=== PATIENT | female | born 1965 | race Caucasian/White ===

== ENCOUNTER 2022-02-15 11:27 | Inpatient (IN) | payer OTHER ==
[~2022-02-15] VITALS: Ht 167.6 cm; Wt 109.5 kg
[2022-02-15] MEDS ORDERED: FUMARATE (11:43)
[2022-02-15] MEDS ORDERED: OLAN5TAB3 PO (11:43)
[2022-02-15] MEDS ORDERED: ACETAMINOPHEN 650 MG SUPP.RECT RC ONE ×3 (11:45→12:01)
[2022-02-15] MEDS ORDERED: IV NS 1000 ML 1,000 ML IV ONE (11:45)
[2022-02-15 12:12] LABS: *BILIRUBIN,URIN 1+ (NEGATIVE); *BLOOD, URINE 2+ (NEGATIVE); *CLARITY,URINE CLOUDY (CLEAR); *KETONES,URINE NEGATIVE (NEGATIVE); LEUKOCYTE ESTERASE ,URINE NEGATIVE (NEGATIVE); NITRITE, URINE POSITIVE (NEGATIVE); PH,URINE 5.5 (5.0-8.0); UGLUCOSE NEGATIVE (NEGATIVE)
[2022-02-15 12:14] LABS: HEMATOCRIT 46.2 % (31.2-41.9); MEAN CORPUSCULAR HEMOGLOBIN 31.1 uug (24.7-32.8); MEAN CORPUSCULAR VOLUME 91.6 fL (75.5-95.3); PLATELET COUNT (AUTO) 281 K/uL (179-408)
[2022-02-15 12:16] LABS: *COLOR,URINE DARK YELLOW (YELLOW)
--- NOTE | 2022-02-15 12:19 | NUR ---
PT IS IN ROOM #1B. DR BARONE EVALUATED TH PT.
[2022-02-15 12:25] LABS: CARBON DIOXIDE 27 mmol/L (21-32); CHLORIDE 104 mmol/L (98-107); GLUCOSE 115 mg/dL (74-106); POTASSIUM 3.6 mmol/L (3.5-5.1); UREA NITROGEN, BLOOD 22 mg/dL (7-18)
[2022-02-15 12:28] LABS: ABG BASE EXCESS -0.6 mmol/L; ABG HCO3 23.9 mmol/L; ABG PCO2 39.2 mmHg (35.0-45.0); ABG PH 7.403 (7.350-7.450); ABG PO2 70.6 mmHg (75.0-100.0); ABG SITE RIGHT RADIAL; COHb 0.4 % (0.5-1.5); MetHb 0.1 % (0.0-1.5); O2Hb 93.7 % (94.0-97.0); VENT MODE Nasal Cannula
[2022-02-15 12:42] LABS: ALANINE AMINOTRANSFERASE 44 U/L (14-59); ALKALINE PHOSPHATASE 121 U/L (50-136); ASPARTATE AMINOTRANSFERASE 43 U/L (15-37); BILIRUBIN,TOTAL 0.4 mg/dL (0.2-1.0); FERRITIN 238 ng/mL (8-252); LACTATE DEHYDROGENASE 192 U/L (81-234); TOTAL PROTEIN, SERUM 8.1 g/dL (6.4-8.2)
[2022-02-15] MEDS ORDERED: OLAN2.5T3 PO (12:51)
[2022-02-15] MEDS ORDERED: QUET25TA PO (12:51)
[2022-02-15 12:53] LABS: BACTERIA,URINE MANY /HPF (NONE SEEN); SQUAMOUS EPITHELIAL CELL,UR MODERATE /HPF (NONE SEEN)
[2022-02-15 12:57] LABS: CREATINE KINASE, TOTAL 470 U/L (26-192)
[2022-02-15] MEDS ORDERED: CEFTRIAXONE 1 G in IV DEXTROSE 5% 50 ML IV ONE (13:00)
[2022-02-15] MEDS ORDERED: CEFTRIAXONE /D5W 50ML IVPB **ER PYXIS IV ONE (13:14)
--- NOTE | 2022-02-15 14:27 | NUR ---
Jenise Rodriguez STAFF COMMAND AND CONTROL OFFICER at bedside.
[2022-02-15] MEDS ORDERED: CEFTRIAXONE 1 G in IV DEXTROSE 5% 50 ML IV SCH (15:00)
[2022-02-15] MEDS ORDERED: AZITHROMYCIN IV 500 MG in IV DEXTROSE 5% 250 ML IV SCH (15:00)
[2022-02-15] MEDS ORDERED: ALBUTEROL SULFATE 8 GM HFA.AER.AD IH PRN (15:00)
[2022-02-15] MEDS ORDERED: ONDANSETRON 4 MG/2 ML VIAL IV PRN (15:00)
[2022-02-15] MEDS ORDERED: ACETAMINOPHEN 650 MG/20.3 ML LIQUID UDC GT PRN (15:00)
[2022-02-15] MEDS ORDERED: ACETAMINOPHEN 650 MG SUPP.RECT RC PRN (15:00)
[2022-02-15] MEDS ORDERED: PIPERACILLIN/TAZOBACTAM/D5W 50 ML IV ONE (15:14)
[2022-02-15] MEDS ORDERED: IV NORMAL SALINE 250 ML IV ONE (15:15)
[2022-02-15] MEDS ORDERED: SWABABLE VALVE TRANSFER SET EA MC ONE (15:15)
[2022-02-15] MEDS ORDERED: IOHEXOL 350 100 ML INFUS..BTL ONE (15:15)
[2022-02-15] MEDS: QUETIAPINE FUMARATE 25 MG TABLET PO SCH (17:00)
[2022-02-15] MEDS ORDERED: OLANZAPINE 2.5 MG TABLET PO SCH (17:00)
--- NOTE | 2022-02-15 17:32 | NUR ---
PT IS RESTING IN BED CONFORTABLY. NO S/S OF ACUTE DISTRESS AT THIS TIME. CONTINUE TO MONITOR THE PT.
--- NOTE | 2022-02-15 19:52 | NUR ---
RECEIVED REPORT FROM TIFFANY FERNANDEZ. PATIENT REMAINS ON TELEMETRY MONITORING. NSR, NO SIGNS OF RESPIRATORY DISTRESS. VITAL SIGNS STABLE.
[2022-02-15] MEDS ORDERED: ENOXAPARIN SODIUM 100 MG/ML DISP.SYRIN SQ SCH (20:00)
[2022-02-15] MEDS ORDERED: ENOXAPARIN SODIUM 100 MG/ML DISP.SYRIN SQ ONE (21:07)
--- NOTE | 2022-02-15 21:12 | NUR ---
PATIENT CARE REPORTED TO TIFFANY ANDRE ADMITTING RN TO FLOOR. VITAL SIGNS STABLE.
--- NOTE | 2022-02-15 21:17 | NUR ---
TIFFANY QUEVEDOMANAGER HEART AND MIKE JIMENEZ TRANSPORTED PATIENT IN STABLE CONDITION.
--- NOTE | 2022-02-15 21:25 | NUR ---
Received pt from er via [facility]. Under the care of Jenise Rodriguez NP. Dx: Covid 19 PNA. Pt on 3l nasal cannula at 94%. Admission process and care plan initiated. Belonging list done. Iv intact. detention assessment done. Pt observed to have redness on groin area. PT has richards catheter and dwelling yellow colored urine. Safety and comfort provided. Will continue to monitor
[2022-02-15 21:51] VITALS: BP 117/45
--- NOTE | 2022-02-15 23:00 | NUR ---
Quynh daughter of the pt called regarding update of her mother. Gave information and nurse ask regarding advance directive of the pt.Pt ifs full code.Family is asking if they can visit the pt. Told family member that its a hospital protocol that no vistor is allowed for covid pt for safety purposes. Family member talked to supervisor scrap preparation. Will continue to monitor.
[2022-02-16 00:03] VITALS: BP 107/45
[2022-02-16] MEDS: IV NS 1000 ML 1,000 ML IV PRN ×2 (00:19→10:47)
--- NOTE | 2022-02-16 01:50 | NUR ---
Called Kaitlyn ( person to notify) regarding pt update. Gave information that within the scope of the nurse job description. Will let the doctor know that family wants an update regarding the pt.
[2022-02-16 04:21] VITALS: BP 104/53
[2022-02-16] MEDS ORDERED: ACETAMINOPHEN 325 MG TABLET PO PRN (05:45)
--- NOTE | 2022-02-16 06:49 | NUR ---
Pt slept intermittently. Pt in no acute distress. Iv intact. Pt on 3l nasal cannula. Pt had richards catheter and draining yellow colored urine. Prescribed medication given and pt tolerated it well. Pt nonverbal. Safety and comfort provided. All needs are met. Will endorse to incoming nurse for continuity of care.
--- NOTE | 2022-02-16 06:51 | NUR ---
Pt on sinus rhythm
[2022-02-16 07:02] LABS: HEMATOCRIT 41.3 % (31.2-41.9); MEAN CORPUSCULAR HEMOGLOBIN 31.5 uug (24.7-32.8); MEAN CORPUSCULAR VOLUME 91.9 fL (75.5-95.3); PLATELET COUNT (AUTO) 232 K/uL (179-408)
[2022-02-16 07:29] LABS: BILIRUBIN,TOTAL 0.3 mg/dL (0.2-1.0); CREATININE 0.7 mg/dL (0.6-1.3); POTASSIUM 3.6 mmol/L (3.5-5.1)
--- NOTE | 2022-02-16 08:30 | NUR ---
resting. on 3 lpm via nc satting 94%. breathing non labored. sr on telemonitor. awakens a little but non verbal unable to answer questions. iv intact with hydration ongoing. fc intact yellow urine in bag. no ss of pain or sob. needs attended. cont to monitor Addendum: 02/16/22 at 0833 by ROSANGELA DOMINGUEZ RN cont covid precautions. safety measures in place.
[2022-02-16] MEDS: OLANZAPINE 5 MG TABLET PO SCH ×2 (09:00→16:52)
[2022-02-16] MEDS: QUETIAPINE FUMARATE 25 MG TABLET PO SCH (09:00)
[2022-02-16] MEDS: DEXAMETHASONE SOD PHOSPHATE 4 MG INJ IV SCH (09:19)
[2022-02-16] MEDS: PANTOPRAZOLE SODIUM 40 MG VIAL IV SCH (09:19)
--- NOTE | 2022-02-16 09:40 | NUR ---
pt too sleepy, high risk for aspiration, po meds held
[2022-02-16 11:35] VITALS: BP 120/69
[2022-02-16] MEDS: CEFTRIAXONE 2 G in IV DEXTROSE 5% 100 ML IV SCH (12:51)
[2022-02-16] MEDS ORDERED: AZITHROMYCIN IV 500 MG in IV DEXTROSE 5% 250 ML IV SCH (15:00)
[2022-02-16] MEDS: DOXYCYCLINE HYCLATE IV 100 MG in IV DEXTROSE 5% 100 ML IV SCH (15:11)
[2022-02-16 16:00] VITALS: BP 118/69
--- NOTE | 2022-02-16 16:41 | NUR ---
relayed Speech therapy notes to MULTIPLE DRILL OPERATOR [facility] with order to change pt diet to npo for now
--- NOTE | 2022-02-16 17:33 | NUR ---
resting. still unable to verbalize, does not follow commands. sr on telemonitor. no sob or pain
--- NOTE | 2022-02-16 19:40 | NUR ---
Received patient lying in bed. Awake, able to make eye contact, smiling but non-verbal. In no apparent distress. No signs or symptoms of pain or SOB. On O2 at 3LPM via NC in place. O2 sat at 93%. IV site on right wrist intact and patent. Bowden catheter intact and draining via gravity. COVID precaution observed. Safety measure initiated and call light within reached.
[2022-02-16 20:00] VITALS: BP 102/45
[2022-02-16] MEDS: ENOXAPARIN SODIUM 40 MG/0.4 ML DISP.SYRIN SQ SCH (20:31)
[2022-02-17] VITALS: BP 111/59
[2022-02-17] MEDS: IV NS 1000 ML 1,000 ML IV PRN ×2 (00:09→12:40)
[2022-02-17] MEDS: DOXYCYCLINE HYCLATE IV 100 MG in IV DEXTROSE 5% 100 ML IV SCH ×2 (02:23→14:47)
[2022-02-17 04:00] VITALS: BP 123/70
--- NOTE | 2022-02-17 05:59 | NUR ---
Patient slept well during the night. In no apparent distress. Remains on O2 at 3LPM via NC. O2 sat at 96%. No adverse reaction noted from IV antibiotic. NPO status. Needs assessed and attended to. Safety measure maintained and call light within reach.
[2022-02-17 06:33] LABS: HEMATOCRIT 38.5 % (31.2-41.9); MEAN CORPUSCULAR HEMOGLOBIN 31.2 uug (24.7-32.8); MEAN CORPUSCULAR VOLUME 91.8 fL (75.5-95.3); PLATELET COUNT (AUTO) 216 K/uL (179-408)
[2022-02-17 06:38] LABS: CREATININE 0.7 mg/dL (0.6-1.3); POTASSIUM 3.3 mmol/L (3.5-5.1)
[2022-02-17] MEDS: DEXAMETHASONE SOD PHOSPHATE 4 MG INJ IV SCH (07:58)
[2022-02-17] MEDS: OLANZAPINE 5 MG TABLET PO SCH ×2 (07:59→17:00)
[2022-02-17] MEDS: PANTOPRAZOLE SODIUM 40 MG VIAL IV SCH (07:59)
--- NOTE | 2022-02-17 08:00 | NUR ---
RESTING IN BED WITH EYES CLOSED, OPENS EYES TO VERBAL AND TACTILE STIMULI. ON 3L O2 VIA NC SATURATING 95-96%. SWALLOW TEST WITH 5CC WATER NO SIGNS OF COUGHING OR CHOKING, FOLLOWS COMMAND BY OPENING MOUTH. AFEBRILE SR ON MONITOR
[2022-02-17] MEDS: POTASSIUM CHLORIDE 50 ML IV SCH ×2 (11:01→11:30)
[2022-02-17 11:30] VITALS: BP 153/89
--- NOTE | 2022-02-17 12:00 | NUR ---
NO CHANGE FROM MORNING ASSESSMENT
[2022-02-17] MEDS: CEFTRIAXONE 2 G in IV DEXTROSE 5% 100 ML IV SCH (12:42)
--- NOTE | 2022-02-17 13:00 | NUR ---
CONTINUE IV ANTIBIOTIC ORDERED NO REACTION NOTED, KEPT NPO AND CONTINUE WITH IVF AT 90 MLS/HR
[2022-02-17 16:00] VITALS: BP 124/75
--- NOTE | 2022-02-17 17:49 | NUR ---
1700 MEDS NOT GIVEN PT NPO
[2022-02-17 20:00] VITALS: BP 125/77
--- NOTE | 2022-02-17 20:40 | NUR ---
Patient asleep but arousable, no sob no chest pain, no s/s of pain, remains on droplet precaution for covid 19, tele monitor sinus rhythm, sinus tachy, sat wnl, v/s table, cont to monitor.
[2022-02-17] MEDS: ENOXAPARIN SODIUM 40 MG/0.4 ML DISP.SYRIN SQ SCH (21:23)
[2022-02-18] VITALS: BP 128/82
[2022-02-18] MEDS: DOXYCYCLINE HYCLATE IV 100 MG in IV DEXTROSE 5% 100 ML IV SCH ×2 (03:12→16:48)
[2022-02-18] MEDS: IV NS 1000 ML 1,000 ML IV PRN ×2 (03:14→22:10)
[2022-02-18 04:00] VITALS: BP 129/76
--- NOTE | 2022-02-18 05:03 | NUR ---
Patient asleep, but arousable, no complain of pain, remain on droplet precaution, sat wnl, afebrile kept comfortable, cont to monitor.
[2022-02-18 06:59] LABS: HEMATOCRIT 38.6 % (31.2-41.9); MEAN CORPUSCULAR HEMOGLOBIN 31.1 uug (24.7-32.8); MEAN CORPUSCULAR VOLUME 91.6 fL (75.5-95.3); PLATELET COUNT (AUTO) 222 K/uL (179-408)
[2022-02-18 07:22] LABS: CREATININE 0.8 mg/dL (0.6-1.3); MAGNESIUM 1.7 mg/dL (1.8-2.4); POTASSIUM 3.4 mmol/L (3.5-5.1)
[2022-02-18] MEDS: OLANZAPINE 5 MG TABLET PO SCH ×3 (09:00→16:49)
[2022-02-18] MEDS: DEXAMETHASONE SOD PHOSPHATE 4 MG INJ IV SCH (09:43)
[2022-02-18] MEDS: PANTOPRAZOLE SODIUM 40 MG VIAL IV SCH (09:43)
[2022-02-18] MEDS: POTASSIUM CHLORIDE 50 ML IV SCH ×2 (09:44→11:11)
--- NOTE | 2022-02-18 10:20 | NUR ---
Pt is sleeping, opens eyes with touch but does not fully stay alert. Unable to do swallow eval due to lethargy. Pt to remain on NPO status until further notice
[2022-02-18] MEDS: MAGNESIUM SULFATE/D5W 100 ML IV SCH ×2 (12:05→13:10)
[2022-02-18 12:24] VITALS: BP 113/52
[2022-02-18] MEDS: CEFTRIAXONE 2 G in IV DEXTROSE 5% 100 ML IV SCH (13:10)
[2022-02-18 15:22] VITALS: BP 129/69
--- NOTE | 2022-02-18 16:00 | NUR ---
Pt is a/po x 4. Pt being discharged to [facility] bed 47B. Nursing extruding department supervisor, administration, 2 social workers and RN in room counting patients money and showing patient all of her personal belongings one by one. After all that was accounted for, pt signed personal belongings list. All discharge information given to patient, provided with paperwork and education in folder transferring with her. ID band IV access removed. no signs of acute distress. pt is agreeable with discharge and aware of next plan. Report was given to Tosin ALLEN yesterday by nurse Bacon. Called and notified facility today of patient arrival, bed is still available. Addendum: 02/18/22 at 1639 by JIMMIE OAKES RN note for wrong patient. Note belongs to pt in [address] [place] [address].
--- NOTE | 2022-02-18 18:14 | NUR ---
Pt has been taken down for CT of the head without contrast. Pt still lethargic, only opens eyes to stimulus and touch but does not make coherent statements. Will continue to monitor and endorse.
--- NOTE | 2022-02-18 18:32 | NUR ---
Pt is back in room from CT. Condition remains the same. No signs of acute distress, will endorse to shift boss.
[2022-02-18 20:00] VITALS: BP 120/57
--- NOTE | 2022-02-18 20:00 | NUR ---
Received patient asleep on bed, easily arousable for care and mumbles. On O2 at 3lpm via nc saturating at 97%. NSR on tele. IV access RFA and midline on CATRINA patent and intact. FC draining well with yellowish urine. Still on droplet precaution. All needs attended. Call light placed within reach. Will continue to monitor.
[2022-02-18] MEDS: ENOXAPARIN SODIUM 40 MG/0.4 ML DISP.SYRIN SQ SCH (20:23)
[2022-02-19 00:06] VITALS: BP 127/62
[2022-02-19] MEDS: DOXYCYCLINE HYCLATE IV 100 MG in IV DEXTROSE 5% 100 ML IV SCH ×2 (02:41→14:16)
[2022-02-19 04:41] VITALS: BP 119/57
--- NOTE | 2022-02-19 06:29 | NUR ---
Pt asleep throughout the night. On O2 at 3lpm via NC saturating at 97%. NSR on tele. No significant changes noted. All needs attended. Safety precautions observed. Will endorse to next shift for continuity of care.
[2022-02-19 07:35] LABS: HEMATOCRIT 40.1 % (31.2-41.9); MEAN CORPUSCULAR HEMOGLOBIN 31.4 uug (24.7-32.8); MEAN CORPUSCULAR VOLUME 90.9 fL (75.5-95.3); PLATELET COUNT (AUTO) 211 K/uL (179-408)
[2022-02-19 07:48] LABS: CREATININE 0.8 mg/dL (0.6-1.3); MAGNESIUM 1.9 mg/dL (1.8-2.4); POTASSIUM 3.5 mmol/L (3.5-5.1)
--- NOTE | 2022-02-19 08:00 | NUR ---
patient easily arousable for care, non verbal. On O2 at 2lpm via NC, no SOB, occasional moist cough noted. NSR on telemetry. IV access RFA and midline on CATRINA patent and intact. FC draining well with yellow clear urine. Continues on COVID isolation, droplet precautions followed. All needs attended. Call light placed within reach.
[2022-02-19] MEDS: PANTOPRAZOLE SODIUM 40 MG VIAL IV SCH (08:08)
[2022-02-19] MEDS: DEXAMETHASONE SOD PHOSPHATE 4 MG INJ IV SCH (08:08)
--- NOTE | 2022-02-19 10:30 | NUR ---
Patient is easily woken. patient is non verbal does turn head to look at this RN when spoken to. Swallow eval completed by this RN, patient has no drooling at this time. Able to swallow 5ml water without difficulty. Patient then able to tolerate 1/2 cup of water without difficulty, also able to take about 8-10 table spoons of apple sauce. Flavio Aden NP aware with new orders to start puree diet and feed patient at night.
[2022-02-19 11:54] VITALS: BP 110/66
[2022-02-19] MEDS: CEFTRIAXONE 2 G in IV DEXTROSE 5% 100 ML IV SCH (12:13)
--- NOTE | 2022-02-19 12:30 | NUR ---
Able to tolerate 30-40% of puree lunch and 50% of Ensure, patient is total assist with feeding. patient HOB up for aspiration precautions. Still remains non verbal, able to wake easily by touch.
[2022-02-19 15:52] VITALS: BP 118/61
--- NOTE | 2022-02-19 18:26 | NUR ---
Able to tolerate 10-20% of puree lunch and 100% of Ensure, patient is total assist with feeding. Patient HOB up for aspiration precautions. Still remains non verbal, able to wake easily by touch.
--- NOTE | 2022-02-19 19:30 | NUR ---
Received patient in bed with eyes closed, able to wake up for care, non verbal. HOB elevated, no noted acute distress. Occasional cough noted. NSR on telemetry. RFA and midline on CATRINA intact and patent. Continues on COVID isolation, droplet precautions observed. Bowden cath intact and patent draining to yellow urine. Needs assessed and attended to. Call light within reach.
[2022-02-19 20:10] VITALS: BP 103/60
[2022-02-19] MEDS: ENOXAPARIN SODIUM 40 MG/0.4 ML DISP.SYRIN SQ SCH (20:44)
[2022-02-19] MEDS: IV NS 1000 ML 1,000 ML IV PRN (23:30)
[2022-02-20 00:43] VITALS: BP 122/75
[2022-02-20] MEDS: DOXYCYCLINE HYCLATE IV 100 MG in IV DEXTROSE 5% 100 ML IV SCH ×2 (03:09→14:47)
[2022-02-20 04:48] VITALS: BP 134/69
--- NOTE | 2022-02-20 06:46 | NUR ---
Patient slept well, able to wake up for care. Still non verbal. No noted facial grimace. No SOB, occasional cough noted. No noted adverse reaction from IV antibiotics.
[2022-02-20 06:56] LABS: HEMATOCRIT 42.2 % (31.2-41.9); MEAN CORPUSCULAR HEMOGLOBIN 30.9 uug (24.7-32.8); PLATELET COUNT (AUTO) 217 K/uL (179-408)
[2022-02-20 07:42] LABS: CREATININE 0.8 mg/dL (0.6-1.3); PHOSPHOROUS 2.5 mg/dL (2.5-4.9); POTASSIUM 3.5 mmol/L (3.5-5.1)
[2022-02-20] MEDS: PANTOPRAZOLE SODIUM 40 MG VIAL IV SCH (09:33)
[2022-02-20] MEDS: DEXAMETHASONE SOD PHOSPHATE 4 MG INJ IV SCH (09:33)
[2022-02-20 11:57] VITALS: BP 114/49
[2022-02-20] MEDS: CEFTRIAXONE 2 G in IV DEXTROSE 5% 100 ML IV SCH (12:06)
[2022-02-20] MEDS: IV NS 1000 ML 1,000 ML IV PRN (14:46)
[2022-02-20 16:12] VITALS: BP 128/59
--- NOTE | 2022-02-20 18:24 | NUR ---
Patient received care well throughout shift with no signs of distress or pain. Patient remains nonverbal but is able to track. IV site patent and intact. Bed left in lowest position. Comfort measures provided. Will endorse information to PM nurse.
[2022-02-20 20:00] VITALS: BP 149/76
[2022-02-20] MEDS: ENOXAPARIN SODIUM 40 MG/0.4 ML DISP.SYRIN SQ SCH (20:52)
[2022-02-21] VITALS: BP 135/91
[2022-02-21] MEDS: DOXYCYCLINE HYCLATE IV 100 MG in IV DEXTROSE 5% 100 ML IV SCH ×2 (02:48→14:24)
[2022-02-21 04:00] VITALS: BP 133/71
[2022-02-21] MEDS: PANTOPRAZOLE ORAL SUSPENSION 40 MG SUSPDR.PKT PO SCH (06:06)
[2022-02-21 07:17] LABS: HEMATOCRIT 40.8 % (31.2-41.9); MEAN CORPUSCULAR HEMOGLOBIN 30.6 uug (24.7-32.8); MEAN CORPUSCULAR VOLUME 90.2 fL (75.5-95.3); PLATELET COUNT (AUTO) 219 K/uL (179-408)
[2022-02-21 07:28] LABS: CREATININE 0.7 mg/dL (0.6-1.3); MAGNESIUM 1.8 mg/dL (1.8-2.4); PHOSPHOROUS 2.3 mg/dL (2.5-4.9); POTASSIUM 3.1 mmol/L (3.5-5.1)
--- NOTE | 2022-02-21 08:00 | NUR ---
awake alert but confused, head of bed elevated, on 3l/nc sat at 94%, no distress noted, droplet isolation observed for covid, needs attended and safety measures maintained, call light within reach
[2022-02-21 08:34] VITALS: BP 119/52
[2022-02-21] MEDS: DEXAMETHASONE SOD PHOSPHATE 4 MG INJ IV SCH (08:44)
--- NOTE | 2022-02-21 09:00 | NUR ---
fed with breakfast ate 30%, aspiration precautions observed, seen by Peyton Aden NP and was seen by Dr Staton earlier, will continue to monitor
[2022-02-21] MEDS ORDERED: POTASSIUM CHLORIDE 20 MEQ TAB.PRT.SR PO ONE (10:00)
[2022-02-21] MEDS ORDERED: DEXA4VIA17 IV (11:31)
[2022-02-21] MEDS ORDERED: ALBU8HFA4 IH (11:31)
[2022-02-21] MEDS: CEFTRIAXONE 2 G in IV DEXTROSE 5% 100 ML IV SCH (12:26)
[2022-02-21 14:06] VITALS: BP 113/45
[2022-02-21 15:29] VITALS: BP 128/75
[2022-02-21] MEDS ORDERED: NEUTRA PHOS PACKET PO ONE (16:00)
--- NOTE | 2022-02-21 19:40 | NUR ---
Patient in bed awake, confused and mumbling. HOB elevated to patient's comfort. In no acute distress, no SOB, no cough/congestion. Bowden cath intact draining to yellow color urine. Right arm IV access intact and patent. Bed in locked and low position. Call light within easy reach.
[2022-02-21 20:33] VITALS: BP 144/81
[2022-02-21] MEDS: ENOXAPARIN SODIUM 40 MG/0.4 ML DISP.SYRIN SQ SCH (20:49)
[2022-02-22 00:25] VITALS: BP 114/72
[2022-02-22] MEDS: DOXYCYCLINE HYCLATE IV 100 MG in IV DEXTROSE 5% 100 ML IV SCH ×2 (02:54→14:48)
[2022-02-22 04:36] VITALS: BP 139/79
--- NOTE | 2022-02-22 06:09 | NUR ---
Patient slept well, easy to arouse. HOB kept elevated, no acute distress noted, no cough/congestion. No adverse reaction from IV antibiotics. Isolations precautions observed.
[2022-02-22] MEDS: PANTOPRAZOLE ORAL SUSPENSION 40 MG SUSPDR.PKT PO SCH (06:23)
[2022-02-22 08:22] LABS: HEMATOCRIT 41.3 % (31.2-41.9); MEAN CORPUSCULAR HEMOGLOBIN 30.9 uug (24.7-32.8); MEAN CORPUSCULAR VOLUME 90.7 fL (75.5-95.3); PLATELET COUNT (AUTO) 287 K/uL (179-408)
[2022-02-22 08:44] LABS: BILIRUBIN,TOTAL 0.3 mg/dL (0.2-1.0); CREATININE 0.7 mg/dL (0.6-1.3); MAGNESIUM 1.8 mg/dL (1.8-2.4); POTASSIUM 3.4 mmol/L (3.5-5.1); TOTAL PROTEIN, SERUM 7.2 g/dL (6.4-8.2)
[2022-02-22] MEDS: DEXAMETHASONE SOD PHOSPHATE 4 MG INJ IV SCH (09:15)
[2022-02-22] MEDS ORDERED: POTASSIUM CHLORIDE 20 MEQ TAB.PRT.SR PO ONE (10:00)
--- NOTE | 2022-02-22 12:43 | NUR ---
D/C PLANNING TO [facility] AWAITING FOR ORDERS.
[2022-02-22] MEDS: CEFTRIAXONE 2 G in IV DEXTROSE 5% 100 ML IV SCH (13:34)
--- NOTE | 2022-02-22 13:42 | NUR ---
PATIENT SEEN AND EXAMINED BY OSCAR RICHARD WITH NEW ORDERS AND NOTED
[2022-02-22 14:43] VITALS: BP 120/71
[2022-02-22 16:30] VITALS: BP 137/77
--- NOTE | 2022-02-22 18:00 | NUR ---
O2 NOW AT 2L/M BY NASAL CANULA WITH ADEQUATE SATS NO SOB NOTED REMAIN ON COVID ISOLATION AND PRECAUTION ORDERED WILL CONTINUE TO OBSERVE.
--- NOTE | 2022-02-22 19:30 | NUR ---
Received pt in no acute distress. Iv intact. Pt on 2l nasal cannula. Safety and comfort provided. Will continue to monitor.
[2022-02-22 20:02] VITALS: BP 117/60
[2022-02-22] MEDS: ENOXAPARIN SODIUM 40 MG/0.4 ML DISP.SYRIN SQ SCH (20:31)
[2022-02-23 00:30] VITALS: BP 101/56
[2022-02-23 04:45] VITALS: BP 148/73
[2022-02-23] MEDS: PANTOPRAZOLE ORAL SUSPENSION 40 MG SUSPDR.PKT PO SCH (06:04)
--- NOTE | 2022-02-23 06:57 | NUR ---
Pt slept intermittently. Pt in 1l nasal cannula at 93%. Pt in no acute distress.Pt on sinus rhythm . All needs are met. Vital signs within normal limit. Will endorse to incoming nurse for continuity of care.
[2022-02-23 07:27] LABS: HEMATOCRIT 42.4 % (31.2-41.9); MEAN CORPUSCULAR HEMOGLOBIN 30.4 uug (24.7-32.8); MEAN CORPUSCULAR VOLUME 90.3 fL (75.5-95.3); PLATELET COUNT (AUTO) 332 K/uL (179-408)
[2022-02-23 07:39] LABS: CREATININE 0.7 mg/dL (0.6-1.3); MAGNESIUM 1.9 mg/dL (1.8-2.4); PHOSPHOROUS 3.4 mg/dL (2.5-4.9); POTASSIUM 3.8 mmol/L (3.5-5.1)
[2022-02-23] MEDS: DEXAMETHASONE SOD PHOSPHATE 4 MG INJ IV SCH (08:50)
[2022-02-23 12:27] VITALS: BP 113/46
[2022-02-23] MEDS ORDERED: DEXA6TAB6 PO (12:45)
--- NOTE | 2022-02-23 12:45 | NUR ---
Patient is easily woken with verbal stimuli. Continues to be non verbal. On 1L 02 via NC with 02 sats 96%. Occasional moist non productive cough noted. No s/s of pain or discomfort. Patient tolerates PO puree diet well, noted with delayed swallowing and drowsiness when eating. patient requires constant stimuli to stay awake and physical cuing for PO consumption. No coughing noted during feeding, HOB up, aspiration precautions followed. Right wrist and right upper arm midline intact and patent. All needs attended by staff.
[2022-02-23] MEDS ORDERED: ENOX40DI SQ (12:46)
[2022-02-23] MEDS: ENSURE ENLIVE (VAN) 240 ML LIQUID PO SCH ×2 (13:42→17:02)
--- NOTE | 2022-02-23 14:55 | NUR ---
Per infectious disease LINDY Palacios and Flavio Aden TUBING OILER, patient does not need to be isolated for COVID-19 any further. Patient transferred to new clean room out of COVID area. FFamily made aware by LINDY Aden.
[2022-02-23 16:29] VITALS: BP 130/55
[2022-02-23 20:00] VITALS: BP 128/82
[2022-02-23] MEDS: ENOXAPARIN SODIUM 40 MG/0.4 ML DISP.SYRIN SQ SCH (20:22)
[2022-02-24 04:00] VITALS: BP 140/73
--- NOTE | 2022-02-24 06:04 | NUR ---
PATIENT ASLEEP IN BED. SLEPT WELL THROUGHOUT THE NIGHT. VSS. BED ALARM ON. NO RESP. DISTRESS NOTED. CALL LIGHT IN REACH. ALL NEEDS ATTENDED. WILL CONTINUE TO MONITOR AND ASSESS.
[2022-02-24] MEDS: PANTOPRAZOLE ORAL SUSPENSION 40 MG SUSPDR.PKT PO SCH (06:23)
[2022-02-24 08:00] VITALS: BP 116/65
[2022-02-24] MEDS: DEXAMETHASONE SOD PHOSPHATE 4 MG INJ IV SCH (08:25)
[2022-02-24] MEDS: ENSURE ENLIVE (VAN) 240 ML LIQUID PO SCH ×3 (08:25→17:03)
[2022-02-24 12:00] VITALS: BP 108/64
[2022-02-24 15:39] VITALS: BP 121/67
--- NOTE | 2022-02-24 17:25 | NUR ---
Patient is stable, sleeping intermittently, wakes easily. Patient is drowsy during breakfast time and is unable to tolerate breakfast. Patient ate 100 % of lunch. No SOB, Able to titrate oxygen and patient is now on RA with 02 saturation at 94-95%. NO S/S of pain. Family able to visit today. Aspiration precautions continued, Extensive assist provided for all ADL's . All needs attended.
[2022-02-24] MEDS: ENOXAPARIN SODIUM 40 MG/0.4 ML DISP.SYRIN SQ SCH (20:42)
[2022-02-24 20:47] VITALS: BP 122/64
[2022-02-25 04:16] VITALS: BP 126/57
[2022-02-25] MEDS: PANTOPRAZOLE ORAL SUSPENSION 40 MG SUSPDR.PKT PO SCH (06:27)
[2022-02-25] MEDS: DEXAMETHASONE SOD PHOSPHATE 4 MG INJ IV SCH (09:13)
[2022-02-25] MEDS: ENSURE ENLIVE (VAN) 240 ML LIQUID PO SCH ×3 (09:13→16:22)
[2022-02-25] MEDS ORDERED: REMEDY ESSENTIAL ZINC PASTE 113 GM TOP PRN (12:00)
[2022-02-25 12:46] VITALS: BP 134/97
[2022-02-25 15:45] VITALS: BP 122/62
[2022-02-25 20:00] VITALS: BP 106/61
[2022-02-25] MEDS: ENOXAPARIN SODIUM 40 MG/0.4 ML DISP.SYRIN SQ SCH (21:09)
[2022-02-26 04:16] VITALS: BP 130/70
[2022-02-26] MEDS: PANTOPRAZOLE ORAL SUSPENSION 40 MG SUSPDR.PKT PO SCH (06:13)
--- NOTE | 2022-02-26 08:00 | NUR ---
Patient is received, in bed, sleeping at the moment but wakes easily. No SOB, Able to titrate oxygen and patient is now on RA with 02 saturation at 92-93%. NO S/S of pain. Aspiration precautions continued, Extensive assist provided for all ADL's . All needs attended.
[2022-02-26] MEDS: ENSURE ENLIVE (VAN) 240 ML LIQUID PO SCH ×3 (09:00→17:58)
[2022-02-26 11:00] VITALS: BP 139/61
--- NOTE | 2022-02-26 13:00 | NUR ---
Patient is having flat effect on her face during lunch time and is unable to tolerate lunch because she isn't reacting on food, only staring straight
[2022-02-26 16:00] VITALS: BP 122/75
[2022-02-26 20:04] VITALS: BP 108/56
[2022-02-26] MEDS: ENOXAPARIN SODIUM 40 MG/0.4 ML DISP.SYRIN SQ SCH (20:13)
[2022-02-27 03:59] VITALS: BP 114/55
[2022-02-27] MEDS: PANTOPRAZOLE ORAL SUSPENSION 40 MG SUSPDR.PKT PO SCH (06:20)
[2022-02-27] MEDS: ENSURE ENLIVE (VAN) 240 ML LIQUID PO SCH ×3 (09:00→17:00)
[2022-02-27 11:32] VITALS: BP 112/51
--- NOTE | 2022-02-27 12:30 | NUR ---
patient status is NPO
[2022-02-27 15:55] VITALS: BP 115/69
[2022-02-27 20:00] VITALS: BP 113/64
[2022-02-27] MEDS: ENOXAPARIN SODIUM 40 MG/0.4 ML DISP.SYRIN SQ SCH (20:51)
[2022-02-28 04:42] VITALS: BP 113/75
[2022-02-28] MEDS: PANTOPRAZOLE ORAL SUSPENSION 40 MG SUSPDR.PKT PO SCH (05:58)
[2022-02-28] MEDS: ENSURE ENLIVE (VAN) 240 ML LIQUID PO SCH ×3 (09:00→17:00)
[2022-02-28 11:53] VITALS: BP 132/78
[2022-02-28] MEDS ORDERED: CEFAZOLIN 1 G VIAL IV ONE (14:00)
[2022-02-28] MEDS ORDERED: CEFEPIME HCL 1 G in IV DEXTROSE 5% 50 ML IV SCH (14:00)
[2022-02-28] MEDS ORDERED: PROPOFOL 200 MG/20 ML BOTTLE IV ONE (14:00)
[2022-02-28 14:20] LABS: HEMATOCRIT 44.4 % (31.2-41.9); MEAN CORPUSCULAR HEMOGLOBIN 30.5 uug (24.7-32.8); MEAN CORPUSCULAR VOLUME 91.8 fL (75.5-95.3); PLATELET COUNT (AUTO) 467 K/uL (179-408)
[2022-02-28 14:23] LABS: CREATININE 0.6 mg/dL (0.6-1.3); POTASSIUM 3.9 mmol/L (3.5-5.1); TOTAL PROTEIN, SERUM 7.9 g/dL (6.4-8.2)
[2022-02-28] MEDS: CEFEPIME HCL 2 G in IV DEXTROSE 5% 100 ML IV SCH ×2 (15:28→21:16)
[2022-02-28 16:27] VITALS: BP 141/71
--- NOTE | 2022-02-28 19:51 | NUR ---
S/P PEG placement with order from Dr Chase to resume meds, may use PEG for medication only, Tube Feeding start in AM.
[2022-02-28 20:00] VITALS: BP 108/68
[2022-02-28] MEDS: ENOXAPARIN SODIUM 40 MG/0.4 ML DISP.SYRIN SQ SCH (20:19)
[2022-03-01 04:00] VITALS: BP 116/72
[2022-03-01] MEDS: CEFEPIME HCL 2 G in IV DEXTROSE 5% 100 ML IV SCH ×3 (05:34→22:49)
[2022-03-01 06:43] LABS: HEMATOCRIT 42.7 % (31.2-41.9); MEAN CORPUSCULAR HEMOGLOBIN 30.9 uug (24.7-32.8); MEAN CORPUSCULAR VOLUME 91.1 fL (75.5-95.3); PLATELET COUNT (AUTO) 423 K/uL (179-408)
[2022-03-01] MEDS: PANTOPRAZOLE ORAL SUSPENSION 40 MG SUSPDR.PKT PO SCH (07:00)
[2022-03-01 07:06] LABS: CREATININE 0.7 mg/dL (0.6-1.3); POTASSIUM 3.5 mmol/L (3.5-5.1)
[2022-03-01] MEDS: ENSURE ENLIVE (VAN) 240 ML LIQUID PO SCH ×2 (08:16→14:16)
--- NOTE | 2022-03-01 08:34 | NUR ---
Received patient this AM, patient is sleeping intermittently, in no distree, no pain noted. Administered her Ensure bolus via Gtube while waiting for her formula feeding. patient was NPO for 2 days
--- NOTE | 2022-03-01 11:34 | NUR ---
patient is in no distress. Suctioned a lot of mucus from her mouth (saliva and mucus). Will continue to monitor
[2022-03-01 11:39] VITALS: BP 112/61
[2022-03-01] MEDS ORDERED: ENSURE ENLIVE (VAN) 240 ML LIQUID GT SCH (15:02)
[2022-03-01 16:00] VITALS: BP 121/75
[2022-03-01] MEDS: ENSURE ENLIVE (VAN) 240 ML LIQUID GT SCH (17:14)
[2022-03-01 20:00] VITALS: BP 133/48
[2022-03-01 20:21] VITALS: BP 133/43
[2022-03-01] MEDS: ENOXAPARIN SODIUM 40 MG/0.4 ML DISP.SYRIN SQ SCH (22:51)
--- NOTE | 2022-03-02 01:52 | NUR ---
SUCTIONED THE NASOPHRYNS. SECRETION IS BRIGHT RED. AND MODERASTE CLEAR SECRETION FROM THE OROPHRYNX. PATIEB=NT TOLERATED SUCTIONING.
[2022-03-02 04:00] VITALS: BP 114/61
[2022-03-02] MEDS: CEFEPIME HCL 2 G in IV DEXTROSE 5% 100 ML IV SCH ×3 (06:55→21:21)
[2022-03-02] MEDS: PANTOPRAZOLE ORAL SUSPENSION 40 MG SUSPDR.PKT GT SCH (07:14)
[2022-03-02] MEDS: ACETAMINOPHEN 325 MG TABLET GT PRN (07:15)
[2022-03-02] MEDS: ENSURE ENLIVE (VAN) 240 ML LIQUID GT SCH ×3 (08:57→16:55)
[2022-03-02 11:36] VITALS: BP 125/73
[2022-03-02 16:00] VITALS: BP 115/62
--- NOTE | 2022-03-02 17:00 | NUR ---
Patient is stable, sleeping intermittently, wakes easily. Patient is able to track this RN during care, is aphasic. No SOB, on 2L 02 via NC. NO S/S of pain. Family able to visit today. GT is patent and intact, infusing Vital AF at 70cc/ hr, no nausea or vomiting noted. Oral suctioning provided frequently since patient is having a moist cough but unable to clear secretions. Aspiration precautions continued, Extensive assist provided for all ADL's . All needs attended.
[2022-03-02 20:00] VITALS: BP 109/68
[2022-03-02] MEDS: APIXABAN 5 MG TABLET GT SCH (20:47)
[2022-03-03 04:00] VITALS: BP 108/64
[2022-03-03] MEDS: CEFEPIME HCL 2 G in IV DEXTROSE 5% 100 ML IV SCH ×3 (05:55→22:19)
[2022-03-03] MEDS: PANTOPRAZOLE ORAL SUSPENSION 40 MG SUSPDR.PKT GT SCH (06:06)
[2022-03-03] MEDS: APIXABAN 5 MG TABLET GT SCH ×2 (08:26→20:28)
[2022-03-03] MEDS: ENSURE ENLIVE (VAN) 240 ML LIQUID GT SCH ×3 (08:27→17:52)
--- NOTE | 2022-03-03 11:17 | NUR ---
awakens to verbal and tactile stimuli. appears to track but non verbal, unable to verbalize needs nor follow commands. no resp distress noted. on 2 lpm nc. lips noted dry, pt mouth breather at times. suctioned prn. oral care done prn pt tolerated. gt patent. gtf infusing as tolerated. no nvd. fc intact yellow urine no hematuria. needs attended. call light within reach. changed and repositioned prn. will cont to monitor.
[2022-03-03] MEDS: VITAL AF 1.2 1,000 ML LIQUID GT PRN (11:34)
[2022-03-03 12:00] VITALS: BP 101/44
[2022-03-03 16:00] VITALS: BP 114/52
[2022-03-03 20:00] VITALS: BP 97/52
[2022-03-04 04:00] VITALS: BP 104/49
[2022-03-04] MEDS: PANTOPRAZOLE ORAL SUSPENSION 40 MG SUSPDR.PKT GT SCH (06:06)
[2022-03-04] MEDS: CEFEPIME HCL 2 G in IV DEXTROSE 5% 100 ML IV SCH ×3 (06:06→21:45)
[2022-03-04 06:59] LABS: HEMATOCRIT 38.3 % (31.2-41.9); MEAN CORPUSCULAR HEMOGLOBIN 30.9 uug (24.7-32.8); MEAN CORPUSCULAR VOLUME 91.9 fL (75.5-95.3); PLATELET COUNT (AUTO) 313 K/uL (179-408)
[2022-03-04 07:02] LABS: CREATININE 0.6 mg/dL (0.6-1.3); MAGNESIUM 2.1 mg/dL (1.8-2.4); PHOSPHOROUS 3.2 mg/dL (2.5-4.9); POTASSIUM 3.2 mmol/L (3.5-5.1)
--- NOTE | 2022-03-04 07:06 | NUR ---
Slept well throughout the night, no noted resp distress. Easy to arouse, non verbal. GT intact with feeding in progress tolerated well. HOB kept elevated. RUE midline intact and patent, flushed as ordered. Needs attended and anticipated. Call light within easy reach.
[2022-03-04] MEDS ORDERED: POTASSIUM CHLORIDE 20 MEQ POWDER PACKET GT ONE (08:30)
[2022-03-04] MEDS: APIXABAN 5 MG TABLET GT SCH ×2 (09:31→20:30)
[2022-03-04] MEDS: ENSURE ENLIVE (VAN) 240 ML LIQUID GT SCH ×3 (09:32→16:14)
[2022-03-04] MEDS: VITAL AF 1.2 1,000 ML LIQUID GT PRN (09:32)
[2022-03-04 12:02] VITALS: BP 112/60
[2022-03-04] MEDS ORDERED: IPRATROPIUM BROMIDE 0.5 MG/2.5 ML NEBU NEB PRN ×2 (13:00)
[2022-03-04] MEDS ORDERED: ALBUTEROL SULFATE 2.5 MG/ 0.5 ML NEBU NEB PRN (13:00)
[2022-03-04] MEDS ORDERED: ACETYLCYSTEINE 10% 4ML VIAL NEB ONE (13:00)
[2022-03-04 16:00] VITALS: BP 111/70
--- NOTE | 2022-03-04 18:10 | NUR ---
Patient remained stable. no distress noted. oral care done. suctioned as needed. turned and repositioned for perfusion. gt intact, tolerating feeding. kept call light within reach. all needs attended. will endorse for continuity of care.
--- NOTE | 2022-03-04 20:00 | NUR ---
rounds made patient in bed ,open eyes to name , non verbal patient doesn't follow commands . no s/s/ of respiratory distress breathing even and unlabored 02 at 2 liters /min tolerating no sob . Bowden to bsd with yellowish urine .left midline ivf patent for antibiotic . tube feeding via peg in progress patient on vital at 70 ml/hr tf flushed with water patent .
[2022-03-04 20:27] VITALS: BP 118/63
--- NOTE | 2022-03-04 20:30 | NUR ---
due medication tablet (eliquis) given via peg crushed medication flushed with water .
--- NOTE | 2022-03-04 21:45 | NUR ---
due antibiotic cefepime given via left midline ,patent flushed with n/s .
[2022-03-05 04:00] VITALS: BP 121/67
[2022-03-05] MEDS: CEFEPIME HCL 2 G in IV DEXTROSE 5% 100 ML IV SCH ×2 (05:49→13:03)
[2022-03-05] MEDS: PANTOPRAZOLE ORAL SUSPENSION 40 MG SUSPDR.PKT GT SCH (06:07)
[2022-03-05] MEDS: VITAL AF 1.2 1,000 ML LIQUID GT PRN (09:19)
[2022-03-05] MEDS: ENSURE ENLIVE (VAN) 240 ML LIQUID GT SCH ×3 (09:19→15:58)
[2022-03-05] MEDS: APIXABAN 5 MG TABLET GT SCH ×2 (09:20→21:06)
[2022-03-05 12:00] VITALS: BP 110/54
[2022-03-05 12:54] LABS: HEMATOCRIT 38.1 % (31.2-41.9); MEAN CORPUSCULAR HEMOGLOBIN 31.1 uug (24.7-32.8); MEAN CORPUSCULAR VOLUME 92.6 fL (75.5-95.3); PLATELET COUNT (AUTO) 314 K/uL (179-408)
[2022-03-05 12:59] LABS: CREATININE 0.5 mg/dL (0.6-1.3); POTASSIUM 3.8 mmol/L (3.5-5.1)
[2022-03-05 16:00] VITALS: BP 114/47
--- NOTE | 2022-03-05 18:57 | NUR ---
Remained stable during the shift. Suctioned as needed. Turned and repositioned. Tolerating 1L of continuous o2, saturating at 98%. All needs attended. no distress noted. will endorse to the next shift for continuity of care.
--- NOTE | 2022-03-05 19:30 | NUR ---
Patient in bed with eyes closed, responsive to verbal and tactile stimuli. In no acute distress, mouth breather with O2 inhalation @ 2L/min via nc. HOB elevated. With on going GT feeding, no residual tolerated well. Oral care provided. Needs attended and anticipated. Call light within reach.
[2022-03-05 20:00] VITALS: BP 106/56
[2022-03-06 04:00] VITALS: BP 109/56
[2022-03-06] MEDS: VITAL AF 1.2 1,000 ML LIQUID GT PRN ×2 (05:28→23:22)
[2022-03-06] MEDS: PANTOPRAZOLE ORAL SUSPENSION 40 MG SUSPDR.PKT GT SCH (06:04)
--- NOTE | 2022-03-06 06:47 | NUR ---
Slept well, able to wake up for care, non verbal. No resp distress noted. GT feeding tolerated well, off @ 0600. HOB kept elevated to facilitate breathing and to prevent aspiration. Bowden cath intact and draining well. Needs attended and anticipated.
[2022-03-06 06:54] LABS: HEMATOCRIT 37.3 % (31.2-41.9); MEAN CORPUSCULAR HEMOGLOBIN 30.9 uug (24.7-32.8); MEAN CORPUSCULAR VOLUME 92.1 fL (75.5-95.3); PLATELET COUNT (AUTO) 282 K/uL (179-408)
[2022-03-06 07:34] LABS: CREATININE 0.6 mg/dL (0.6-1.3); MAGNESIUM 1.9 mg/dL (1.8-2.4); PHOSPHOROUS 3.3 mg/dL (2.5-4.9); POTASSIUM 3.4 mmol/L (3.5-5.1)
[2022-03-06] MEDS: ENSURE ENLIVE (VAN) 240 ML LIQUID GT SCH ×3 (08:15→16:27)
[2022-03-06] MEDS: APIXABAN 5 MG TABLET GT SCH ×2 (08:15→21:18)
[2022-03-06] MEDS ORDERED: POTASSIUM CHLORIDE 20 MEQ POWDER PACKET GT ONE (09:15)
[2022-03-06 11:01] VITALS: BP 141/77
[2022-03-06] MEDS: ACETAMINOPHEN 325 MG TABLET GT PRN (11:34)
[2022-03-06 15:02] VITALS: BP 107/48
--- NOTE | 2022-03-06 18:36 | NUR ---
Patient received care well throughout shift with no signs of distress or pain. Patient had low grade fever during shift at 99.3, and appropriate medicinal interventions provided to reduce fever. Patient tolerated feeding during shift with a patent and intact G-Tube. Currently running feeding of Vital AF at 70cc/hr for 22 hours; off at 0600 and on at 0800 03/07/22. Bed left in lowest position with call light within reach. Comfort measures provided. Will endorse information to PM nurse.
--- NOTE | 2022-03-06 19:30 | NUR ---
Patient in bed awake, alert to self, non verbal. Resp even and unlabored, no SOB, no cough or congestion. HOB elevated, with on going GT feeding Vital AF @ 70cc/hr, no residual. Afebrile, temp 98.4. Repositioned for comfort and circulation. Kept bed in locked and low position with call light within easy reach.
[2022-03-06 20:31] VITALS: BP 115/52
[2022-03-07 04:26] VITALS: BP 112/48
[2022-03-07] MEDS: PANTOPRAZOLE ORAL SUSPENSION 40 MG SUSPDR.PKT GT SCH (06:13)
--- NOTE | 2022-03-07 06:29 | NUR ---
Slept well throughout the night, not in any form of distress. Afebrile. Incontinent care rendered and repositioned to relieve pressure. GT feeding tolerated well, off @ 0600.
[2022-03-07 06:56] LABS: CREATININE 0.5 mg/dL (0.6-1.3); POTASSIUM 3.3 mmol/L (3.5-5.1)
[2022-03-07] MEDS: APIXABAN 5 MG TABLET GT SCH ×2 (08:20→20:16)
[2022-03-07] MEDS: ENSURE ENLIVE (VAN) 240 ML LIQUID GT SCH ×3 (08:20→16:05)
[2022-03-07] MEDS ORDERED: POTASSIUM CHLORIDE 20 MEQ POWDER PACKET GT ONE (09:15)
[2022-03-07 11:02] VITALS: BP 111/60
--- NOTE | 2022-03-07 12:19 | NUR ---
Spoke to dietary regarding ensure enlive vanilla. No stock of vanilla flavor, but will administer chocolate flavor instead.
--- NOTE | 2022-03-07 14:24 | NUR ---
Spoke to patient's medical case worker in regards to finding bed. Home Sales Service Professional Debra informed. Phone number given to patient's medical case worker with Debra BARONE's permission. Awaiting further instructions.
[2022-03-07 15:06] VITALS: BP 106/53
[2022-03-07] MEDS: VITAL AF 1.2 1,000 ML LIQUID GT PRN (16:24)
--- NOTE | 2022-03-07 18:21 | NUR ---
Patient tolerated care well throughout shift. Patient to be evaluated by PT tomorrow for discharge process to other facility. IV site intact and patent. G-tube patent and intact. Bed left in lowest position. Will endorse information to PM nurse.
[2022-03-07 20:41] VITALS: BP 114/54
[2022-03-08 04:40] VITALS: BP 108/48
--- NOTE | 2022-03-08 05:46 | NUR ---
Patient in bed with eyes closed, responsive to verbal and tactile stimuli, non verbal. HOB elevated to prevent aspiration, GT feeding tolerated well. Received care throughout the shift, repositioned Q 2hrs. Kept clean, dry and comfortable.
[2022-03-08] MEDS: PANTOPRAZOLE ORAL SUSPENSION 40 MG SUSPDR.PKT GT SCH (06:07)
[2022-03-08 08:00] LABS: CREATININE 0.6 mg/dL (0.6-1.3); POTASSIUM 3.7 mmol/L (3.5-5.1)
[2022-03-08] MEDS: APIXABAN 5 MG TABLET GT SCH ×2 (09:59→20:37)
[2022-03-08] MEDS: ENSURE ENLIVE (VAN) 240 ML LIQUID GT SCH ×3 (09:59→17:44)
[2022-03-08 11:17] VITALS: BP 123/63
[2022-03-08 16:04] VITALS: BP 114/60
[2022-03-08] MEDS: VITAL AF 1.2 1,000 ML LIQUID GT PRN (17:44)
[2022-03-08 20:00] VITALS: BP 123/65
[2022-03-09 05:00] VITALS: BP 118/75
[2022-03-09] MEDS: PANTOPRAZOLE ORAL SUSPENSION 40 MG SUSPDR.PKT GT SCH (06:08)
[2022-03-09] MEDS: APIXABAN 5 MG TABLET GT SCH ×2 (08:07→23:04)
[2022-03-09] MEDS: ENSURE ENLIVE (VAN) 240 ML LIQUID GT SCH ×3 (09:00→17:00)
--- NOTE | 2022-03-09 09:00 | NUR ---
received pt in bed, no distress noted, no pain. Asked patient how was she doing, she looked at me and nodded meaning she was OK. I noticed she looked better today by her looking at me more consciously than before.
[2022-03-09 11:37] VITALS: BP 137/73
[2022-03-09] MEDS: VITAL AF 1.2 1,000 ML LIQUID GT PRN (12:03)
--- NOTE | 2022-03-09 15:18 | NUR ---
Took patient off oxygen NS and she has been without it on for about an hour. Saturation 96-97%. Tolerates well. No distress noted. Sleeping currently
[2022-03-09 15:20] VITALS: BP 119/72
[2022-03-09 19:00] VITALS: BP 105/60
--- NOTE | 2022-03-10 05:57 | NUR ---
Patient non verbal, hob elevated, no sob no chest pain, requires total assist with adl's, bed bath given, on GTF tolerate well no residual noted, on room air sat 95%, richards cath patent draining with yellow color urine in moderate amount, kept clean dry and comfortable, cont to monitor.
[2022-03-10] MEDS: PANTOPRAZOLE ORAL SUSPENSION 40 MG SUSPDR.PKT GT SCH (06:23)
[2022-03-10 06:38] VITALS: BP 118/42
[2022-03-10 06:40] LABS: HEMATOCRIT 38.1 % (31.2-41.9); MEAN CORPUSCULAR HEMOGLOBIN 30.8 uug (24.7-32.8); MEAN CORPUSCULAR VOLUME 91.6 fL (75.5-95.3); PLATELET COUNT (AUTO) 239 K/uL (179-408)
[2022-03-10 07:02] LABS: CREATININE 0.7 mg/dL (0.6-1.3); MAGNESIUM 1.9 mg/dL (1.8-2.4); PHOSPHOROUS 4.1 mg/dL (2.5-4.9); POTASSIUM 3.8 mmol/L (3.5-5.1)
--- NOTE | 2022-03-10 07:30 | NUR ---
RECEIVED PATIENT IN BED AWAKE WITH EYES OPEN NON VERBAL ALL NEEDS ANTICIPATED AND SATISFIED GT FEEDINGS OFF AT THIS TIME ORDERED WITH NO GASTRIC RESIDUAL ON ROOM AIR WITH NO SHORTNESS OF BREATH MID LINE IS INTACT WITH NO S/S OF INFILTERATION AT THIS TIME.TURNED AND REPOSITIONED Q2H FOR COMFORT MADE COMFORTABLE WILL CONTINUE TO OBSERVE.
[2022-03-10] MEDS: ENSURE ENLIVE (VAN) 240 ML LIQUID GT SCH ×3 (09:00→17:00)
--- NOTE | 2022-03-10 09:00 | NUR ---
PATIENT HAS AN ORDER FOR ORAL ENSURE IF AWAKE SHE IS AWAKE MAKES EYE CONTACT BUT IS UNABLE TO UNDERSTAND THE CONCEPT TO DRINK AT RISK FOR ASPIRATION AT THIS TIME PROVIDER XIOMARA BROOKS AWARE.
[2022-03-10] MEDS: VITAL AF 1.2 1,000 ML LIQUID GT PRN (09:14)
[2022-03-10] MEDS: APIXABAN 5 MG TABLET GT SCH ×2 (09:15→21:46)
[2022-03-10 11:30] VITALS: BP 110/68
[2022-03-10 15:15] VITALS: BP 128/67
--- NOTE | 2022-03-10 15:48 | NUR ---
GT FEEDINGS CONTINUES IN PROGRESS ORDERED WITH NO S/S OF REGURGITATION OR EMESIS NO CHANGES FROM ABOVE ASSESSMENTS.
[2022-03-10 20:11] VITALS: BP 117/61
[2022-03-11 04:28] VITALS: BP 126/69
[2022-03-11] MEDS: PANTOPRAZOLE ORAL SUSPENSION 40 MG SUSPDR.PKT GT SCH (06:00)
--- NOTE | 2022-03-11 06:40 | NUR ---
Patient non verbal, hob elevated, no sob no chest pain, requires total assist with adl's, on GTF tolerate well no residual noted, on room air sat 95%, richards cath patent draining with yellow color urine in moderate amount, kept clean dry and comfortable, cont to monitor.
[2022-03-11] MEDS: APIXABAN 5 MG TABLET GT SCH ×2 (08:06→20:44)
[2022-03-11] MEDS: ENSURE ENLIVE (VAN) 240 ML LIQUID GT SCH ×3 (08:06→16:16)
[2022-03-11 11:51] VITALS: BP 101/34
[2022-03-11 16:00] VITALS: BP 140/72
[2022-03-11] MEDS: ACETAMINOPHEN 325 MG TABLET GT PRN (16:38)
--- NOTE | 2022-03-11 18:34 | NUR ---
Patient tolerated care well throughout shift. Patient with elevated heart rate, which may be associated with some type of pain the patient endured during the shift. Tylenol given, and vital signs now within normal limits. Patient received bed bath and linen change during shift. IV site patent and intact. Bed left in lowest position. G-Tube patent and intact and scheduled to stop at 0600 and begin at 0800 on 03/12/22. Comfort measures provided. Will endorse information to PM nurse.
[2022-03-11] MEDS: VITAL AF 1.2 1,000 ML LIQUID GT PRN (19:30)
[2022-03-11 20:06] VITALS: BP 106/56
[2022-03-12 04:00] VITALS: BP 131/70
--- NOTE | 2022-03-12 05:49 | NUR ---
Patient in bed asleep, responsive to verbal and tactile stimuli. In no acute distress, no cough or congestion. GT intact with feeding in progress tolerated well. HOB elevated. Afebrile the whole shift, no episode of elevated HR. No signs of pain or discomfort. Repositioned, kept clean and dry. Needs assessed and attended to. Call light within reach.
[2022-03-12] MEDS: PANTOPRAZOLE ORAL SUSPENSION 40 MG SUSPDR.PKT GT SCH (06:09)
[2022-03-12] MEDS: ENSURE ENLIVE (VAN) 240 ML LIQUID GT SCH ×2 (08:05→12:18)
[2022-03-12] MEDS: APIXABAN 5 MG TABLET GT SCH (08:05)
[2022-03-12 12:51] VITALS: BP 115/48
[2022-03-12] MEDS: VITAL AF 1.2 1,000 ML LIQUID GT PRN (15:14)
--- NOTE | 2022-03-12 15:43 | NUR ---
Patient report given to Bruno ALLEN of [facility]. Patient to be picked up at 1700.
[2022-03-12 16:38] VITALS: BP 125/60
--- NOTE | 2022-03-12 18:09 | NUR ---
Awaiting patient to be picked up to [facility]. IV site removed. Bowden catheter removed. Wrist band ID removed. Report given. Education provided.
--- NOTE | 2022-03-12 18:34 | NUR ---
Patient discharged from unit at 1830.
== END 2022-03-12 18:30 | DRG 720 ==
LOC: ER 11:27 → TRANSITION 19:29 → TELE3 21:06 → MEDSURG3 02-23 10:40
PROVIDERS: ADMIT Nurse Practitioner Acute Care; ATTEND Nurse Practitioner Acute Care
PROC: B546ZZA Ultrasonography of Right Subclavian Vein, Guidance (ICD-10-PCS; 2022-02-17)
PROC: 05H533Z Insertion of Infusion Device into Right Subclavian Vein, Percutaneous Approach (ICD-10-PCS; 2022-02-17)
PROC: 0DH68UZ Insertion of Feeding Device into Stomach, Via Natural or Artificial Opening Endoscopic (ICD-10-PCS; principal; 2022-02-28)
DX: A41.89 Other specified sepsis (principal); J96.01 Acute respiratory failure with hypoxia; J12.82 Pneumonia due to coronavirus disease 2019; G93.41 Metabolic encephalopathy; U07.1 COVID-19; D68.59 Other primary thrombophilia; J15.9 Unspecified bacterial pneumonia; E87.0 Hyperosmolality and hypernatremia; G30.9 Alzheimer's disease, unspecified; F02.80 Dementia in other diseases classified elsewhere, unspecified severity, without behavioral disturbance, psychotic disturbance, mood disturbance, and anxiety; R13.10 Dysphagia, unspecified; N39.0 Urinary tract infection, site not specified; E66.9 Obesity, unspecified; R62.7 Adult failure to thrive; M62.82 Rhabdomyolysis; K29.70 Gastritis, unspecified, without bleeding; G47.33 Obstructive sleep apnea (adult) (pediatric); Z68.38 Body mass index [BMI] 38.0-38.9, adult; R53.1 Weakness; B96.20 Unspecified Escherichia coli [E. coli] as the cause of diseases classified elsewhere; J98.11 Atelectasis; G31.83 Neurocognitive disorder with Lewy bodies; Z91.81 History of falling; Z74.09 Other reduced mobility
CPT/HCPCS: 36415; 36600; 43761; 51702; 70450; 71045; 71275; 83605; 83615; 83735; 84100; 84484; 85025; 85730; 86140; 87040; 87077; 87086; 87400; 93005; 94640; 94664; 97161; A4663; C9113; G0378; J0456; J0690; J0692; J0696; J1100; J1650; J2405; J2543; J3475; J3480; J3490; J3535; J7040; J7050; Q9967; U0003